=== PATIENT | female | born 1955 | race Caucasian/White ===

== ENCOUNTER 2019-09-01 11:55 | Day surgery (SDC) | payer MEDICARE ==
[~2019-09-01] VITALS: Ht 154.9 cm; Wt 45.9 kg
[~2019-09-01 11:55] MED LIST: ACYC200 PO; ACYC800 PO; ALBU90OI INH; ALBU90OI61 INH; ALEN70 PO; AMLO5 PO; ASCO500 PO; ASPI325 PO; ATEN50; Acyclovir400 MG PO; Aspir 8181 MG PO; BENADRYL25 M1 PO; BUPR150ER PO; BUPR150T2; Budeprion Sr150 MG PO; CALCIUM 500 +1 EAC2; CALCIUM 600 +1 EAC1 PO; CALCIUM PO; CHOL10002 PO; CLON.5; CLON.5 PO; CRUTCH3 XX; CYCL10; CYCL10 PO; DIPH12.5EL PO; ESTMET; Esgic Tablet1 EACH PO; Estrace Vagin42.5 GM; Estriol0.1 GM VAG; FISH OIL + D31 EACH PO; FISH OIL 1,0001 EAC1 PO; FISH1000 PO; GABA300 PO; HYDCHL25 PO; HYDSUL200; HYDSUL200 PO; Hair, Skin & N1 EACH PO; IBUHYD PO; LISI20 PO; LOSA50 PO; LOVA20 PO; MEDR5; MULTIPLE VITAM1 EACH PO; MULVITMIND PO; NASAL SPRAY30 ML; NEURONTIN300 MG PO; NORVASC10 MG; Norco 5-325 Ta1 EACH PO; OMEP20ER PO; OMEPRAZOLE MAGN20 MG PO; OMEPRAZOLE20 MG PO; PENTOXIFYLLINE PO; PHENYLEPHRINE PO; PRED10 PO; PRED5 PO; PROG100 PO; Pentoxifylline400 MG PO; Percocet 5-3251 EACH PO; Revatio20 MG PO; SALM50IP INH; SPIRIVA RESPIMAT4 GM INH; SULI150 PO; TIOT18 INH; TOCO400 PO; TRAM50 PO; TRIA80TC TOP; TRIDERM28.4 GM; TRIDERM28.4 GM TOP; VENL37.5ER PO; VITAMIN D35000 UNIT PO; Vitamin C100 M1; Vitamin C100 M1 PO; [UNRECOGNIZED DRUG - OTHER] PO
== END 2019-09-01 14:07 | disposition home or self-care (01) ==
LOC: ORSCSDS 11:55
PROVIDERS: Surgery
PROC: 0DBP8ZX Excision of Rectum, Via Natural or Artificial Opening Endoscopic, Diagnostic (ICD-10-PCS; principal; 2019-09-01 13:00)
PROC: 0DBK8ZX Excision of Ascending Colon, Via Natural or Artificial Opening Endoscopic, Diagnostic (ICD-10-PCS; principal; 2019-09-01 13:00)
DX: Z12.11 Encounter for screening for malignant neoplasm of colon (principal); K62.1 Rectal polyp; K63.5 Polyp of colon; I10 Essential (primary) hypertension; E78.5 Hyperlipidemia, unspecified; J44.9 Chronic obstructive pulmonary disease, unspecified; Z79.899 Other long term (current) drug therapy; Z87.891 Personal history of nicotine dependence
CPT/HCPCS: 88305; J2704; J7120

== ENCOUNTER 2024-03-25 06:21 | Day surgery (SDC) | payer OTHER ==
[2024-03-25] VITALS (22 sets, daily range): BP systolic 91–140; BP diastolic 60–85
[~2024-03-25] VITALS: Ht 149.9 cm; Wt 49.8 kg
[~2024-03-25 06:21] MED LIST changes: +Acetaminophen 500 MG Tab PO SCH; -CLON.5; -CYCL10; +FISH OIL 1 PO; -FISH OIL 1,0001 EAC1 PO; +FORMOTEROL20 MCG/2 M INH; -HYDSUL200; +IPRAT-ALBUT 0.5-3 ML INH; +IPRATROPIUM BRO30 ML NEB; +Lactated Ringer's 1,000 ML IV SCH; +Morphine Sulfate 15 MG TABCR PO SCH; -NORVASC10 MG; +NORVASC10 MG PO; +Prednisone5 MG/1 ML PO; +Ropinirole HCl0.5 MG PO; -TRIDERM28.4 GM; +Vancomycin HCL 1,000 MG in NS 100 ML IV SCH; -Vitamin C100 M1
[2024-03-25] MEDS ORDERED: CefTRIAXone Sodium 2,000 MG in NS 100 ML IV ONE (06:25)
[2024-03-25] MEDS ORDERED: FentaNYL Citrate 50 MCG/ML 2 ML Injection ONE (07:03)
[2024-03-25] MEDS ORDERED: Midazolam HCl 1MG / ML 2ML Vial ONE (07:03)
[2024-03-25] MEDS ORDERED: propofoL 20 ML IV ONE (07:05)
--- NOTE | 2024-03-25 07:06 | NUR ---
Ambulatory in Day Surgery Patient confirms NPO status and agrees with scheduled surgery. Pre-Op teaching done. Pt verbalizes understanding. History, Chart, Medications and Allergies reviewed before start of procedure. PT HAS AN INTACT HEALING SORE ON HER LEFT CALF THAT IS RED. STATES DR. CONTRERAS HAS SEEN IT A "A WEEK AND A HALF AGO"
[2024-03-25] MEDS ORDERED: Chlorhexidine Mouth Care 15 ML UDC MT SCH (07:20)
[2024-03-25] MEDS ORDERED: Tranexamic Acid 100 ML IV SCH (07:21)
--- NOTE | 2024-03-25 07:32 | NUR ---
TIME OUT PERFORMED W/ DR. MARTÍNEZ DOING A RIGHT BRACHIAL PLEXUS BLOCK, PULSE OX AND HR MONITOR ON.
[2024-03-25] MEDS ORDERED: Bupivacaine 0.5% HCl 5 MG/ML 30MLVIAL ONE (07:38)
[2024-03-25] MEDS ORDERED: ePHEDrine Sulfate 50 MG/ML 1ML Injection ONE (08:50)
[2024-03-25] MEDS ORDERED: Dexamethasone Sod Phos 10 MG/ML 1ML VIAL ONE (08:50)
[2024-03-25] MEDS ORDERED: Rocuronium Bromide 10 MG/ML 5ML Injection IV ONE ×2 (08:50→10:06)
[2024-03-25] MEDS ORDERED: Phenylephrine HCl 100 MCG/ML-NS 10MLSYR (1MG/10ML) ONE (08:50)
[2024-03-25] MEDS ORDERED: Ondansetron HCl 2 MG / ML 2ML Vial ONE ×2 (08:50→11:06)
[2024-03-25] MEDS ORDERED: Sugammadex Sodium 200 MG/2ML SDV (100 MG/ML) ONE (09:52)
[2024-03-25] MEDS ORDERED: Metoclopramide HCl 5MG / ML 2ML Vial ONE (11:10)
--- NOTE | 2024-03-25 11:28 | NUR ---
PT TO DAY SURGERY STEP DOWN; BEDSIDE REPORT RECEIVED. PT HAD TOTAL RIGHT SHOULDER ARTHROPLASTY REVERSE SURGERY. PT HAS RIGHT ARM IN SLING AND HAS POLAR PACK IN PLACE. PT HAS PAS ON AND TURNED ON. PT DENIES PAIN, BUT HAVING SOME NAUSEA IN WHICH SHE WAS RECENTLY MEDICATED FOR. PT HAS RESTLESS LEGS AND IS UNABLE TO SIT STILL.
--- NOTE | 2024-03-25 11:28 | NUR ---
PT HAS DRESSING ON RIGHT SHOULDER THAT IS C/D/I
--- NOTE | 2024-03-25 11:52 | NUR ---
INCENTIVE SPIROMETER GIVEN TO PT, EDUCATED ON USAGE.
--- NOTE | 2024-03-25 12:00 | NUR ---
PT DRESSING REMAINS C/D/I. PT STILL HAVING RESTLESS LEGS.
--- NOTE | 2024-03-25 12:09 | NUR ---
PT O2 DECLINING TO 85-89, GOES UP TO 92-95 WITH DEEP BREATHING AND COUGHING, BUT THEN GOES BACK TO THE 80S. 02 VIA NC 1L PLACED ON PT.
--- NOTE | 2024-03-25 12:13 | NUR ---
PT SAO2 UP TO 94 ON 1L O2 VIA NC
--- NOTE | 2024-03-25 12:16 | NUR ---
SURGICAL FLOOR CALLED, PT TO GO TO ROOM 214 FOR EXTENDED RECOVERY. WILL GIVE BEDSIDE REPORT.
--- NOTE | 2024-03-25 12:20 | NUR ---
DS TRANSFER TO ROOM 214 PT BROUGHT OUT TO 214 FROM AFTER REPORTS OF HER O2 DROPPING TO MID 80'S. POST OP VITALS STARTED, DISCUSSED PLAN WITH HER AND HER DAUGHTER TO MONITOR HER VS WITH ATTENTION TO HER O2 SATS. BULKY DRESSING IN PLACE TO R SHOULDER, PT AWAKE AND ABLE TO ANSWER QUESTIONS, DAUGHTER AT BEDSIDE.
--- NOTE | 2024-03-25 12:25 | NUR ---
PT TRANSFERED TO SURGICAL FLOOR. BEDSIDE REPORT GIVEN TO FARZAD WOOTEN.
--- NOTE | 2024-03-25 12:25 | NUR ---
FARZAD ALCANTAR TO NOTIFY DR CONTRERAS OF PT STAYING IN EXTENDED RECOVERY
--- NOTE | 2024-03-25 17:56 | NUR ---
DISCHARGE SUMMARY POD0 R REVERSE TSA, A/OX4, VSS, TOLERATING PO, ABLE TO AMBLATE TO BATHROOM INDEPENDENTLY, VOIDS INDEPENDENTLY, DENIES PAIN, ABLE TO MOVE FINGERS ON R HAND, SLING REMOVED ONLY WHEN SHE WAS READY TO GET DRESSED, SLING WAS REPLACED WITH ASSISTANCE FROM DAY SURGERY RN. DISCUSSED DISCHARGE INSTRUCTIONS BASED ON PROVIDED INFORMATION FROM DAY SURGERY INCLUDING HOME CARE, MEDICATIONS, AND FOLLOWING UP WITH MD IN 3-4 DAYS. DISCUSSED HOW TO USE HER POLAR PACK AND MOBILITY RESTRICTIONS WELL. NO QUESTIONS AT THIS TIME, ESCORTED OUT VIA WC TO PRIVATE AUTO TO GO HOME WITH HER DAUGHTER.
== END 2024-03-25 17:50 | disposition home or self-care (01) ==
LOC: ORSCMMR 06:21 → ORD 07:30 → ORSCMMR 07:30 → SURS 12:35 → ORSCMMR 17:50
PROVIDERS: Orthopaedic Surgery
PROC: 0RRJ00Z Replacement of Right Shoulder Joint with Reverse Ball and Socket Synthetic Substitute, Open Approach (ICD-10-PCS; principal; 2024-03-25 07:30)
DX: M19.011 Primary osteoarthritis, right shoulder (principal); M75.121 Complete rotator cuff tear or rupture of right shoulder, not specified as traumatic; E78.5 Hyperlipidemia, unspecified; I12.9 Hypertensive chronic kidney disease with stage 1 through stage 4 chronic kidney disease, or unspecified chronic kidney disease; N18.9 Chronic kidney disease, unspecified; I63.9 Cerebral infarction, unspecified; J44.9 Chronic obstructive pulmonary disease, unspecified; F17.210 Nicotine dependence, cigarettes, uncomplicated; K21.9 Gastro-esophageal reflux disease without esophagitis; M32.9 Systemic lupus erythematosus, unspecified; Z79.899 Other long term (current) drug therapy
CPT/HCPCS: 73030; A9270; C1713; C1776; J0696; J1100; J2250; J2371; J2405; J2704; J2765; J3010; J3370; J7120